=== PATIENT | female | born 1965 | race Caucasian/White ===

== ENCOUNTER 2024-04-10 13:34 | Emergency (ER) | payer MEDICARE, OTHER ==
[2024-04-10] MEDS ORDERED: Meclizine HCl 25 MG TAB ONE (14:18)
[2024-04-10 15:01] LABS: #Basophils 0.03 10x3/uL (0.0-0.2); #Eosinophils 0.09 10x3/uL (0.0-0.5); #Monocytes 0.73 10x3/uL (0.0-1.1); #Neutrophils 4.26 10x3/uL (1.5-8.4); %Basophils 0.4 % (0.0-2.0); %Eosinophils 1.2 % (0.0-6.0); %Lymphocytes 29.4 % (18.0-47.0); %Neutrophils 58.3 % (40.0-75.0); Hematocrit 36.7 % (34.9-44.5); Hemoglobin 12.1 g/dL (12.0-15.5); Mean Corpuscular Hemoglobin 32.1 pg (27.0-33.0); Mean Corpuscular Volume 97.3 fL (81.6-98.3); Mean Platelet Volume 9.6 fL (7.4-10.4); Platelet Count 248 10x3/uL (150-450); RBC Distribution Width 12.5 % (11.5-14.5); Red Blood Cell (RBC) Count 3.77 10x6/uL (3.90-5.03); White Blood Cell (WBC) Count 7.3 10x3/uL (3.5-10.5)
[2024-04-10 15:16] LABS: Troponin I Less than 0.010 ng/mL (< 0.028)
[2024-04-10 15:40] LABS: Anion Gap 17 mmol/L (10-20); BUN (Urea Nitrogen) 14 mg/dL (9.8-20.1); Calc. Creatinine Clearance 0 mL/min (70-130); Calcium 9.3 mg/dL (7.8-10.44); Carbon Dioxide 25 mmol/L (22-29); Chloride 102 mmol/L (98-107); Estimated GFR 86; Glucose 186 mg/dL (70-105); Sodium 140 mmol/L (136-145)
== END 2024-04-10 16:16 | disposition home or self-care (01) ==
LOC: CSHERS 13:34
DX: S09.90XA Unspecified injury of head, initial encounter (principal); R42 Dizziness and giddiness; R29.700 NIHSS score 0; W18.30XA Fall on same level, unspecified, initial encounter
CPT/HCPCS: 36415; 70450; 80048; 84484; 85025; 93005

== ENCOUNTER 2025-02-25 16:38 | Outpatient (CLI) | payer OTHER | END 2025-02-25 16:39 | disposition home or self-care (01) | LOC: CSHRAD 16:38 | PROVIDERS: ATTEND Family Medicine Sports Medicine | DX: S39.92XA Unspecified injury of lower back, initial encounter (principal) | CPT/HCPCS: 72220 ==